=== PATIENT | female | born 1975 | race Two or more races ===

== ENCOUNTER 2025-02-15 23:40 | Inpatient (IN) | payer BC, OTHER ==
[~2025-02-15] VITALS: Ht 172.7 cm; Wt 75.0 kg
--- NOTE | 2025-02-15 23:58 | ECG ---
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
--- NOTE | 2025-02-16 00:03 | ED.PDOC ---
Altered Mental Status HPI Comments 49 year old female presents to the ED via EMS with a chief compliant of ALOC onset today (02/15/25). Per EMS, patient's witnessed patient take an unknown amount of her Dilaudid 5 mg medication. Patient is altered, poor historian but able to follow command. PMHx HTN, DM, HLD. No other associated symptoms, modifiers, recent injuries or sick contacts present at this time. 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: No Pertinent OPTICAL LABORATORY MECHANIC History Family History Family History: Reviewed,noncontributory to illness, No family hx of Cancer, No family hx of DM, No family hx of Heart mele, No family hx of HTN, No family hx ofKidney mele, No family hx of Liver mele, No family hx of Lung mele, No family hx of Stroke Social History Smoker: Non-Smoker Alcohol: Denies ETOH Use Drugs: Denies Drug Use Lives In: Home Unable to Obtain due to: Altered Mental Status Physical Exam General Appearance: Normal HEENT: Normal ENT Inspection, Pharynx Normal, TMs Normal Neck: Full Range of Motion, Non-Tender, Normal, Normal Inspection Respiratory: Chest Non-Tender, Lungs Clear, No Accessory Muscle Use, No Respiratory Distress, Normal Breath Sounds Cardiovascular: No Edema, No JVD, No Murmur, No Gallop, Normal Peripheral Pulses, Regular Rate/Rhythm Breast Exam: Deferred Gastrointestinal: No Organomegaly, Non Tender, No Pulsatile Mass, Normal Bowel Sounds, Soft Genitalia: Deferred Pelvic: Deferred Rectal: Deferred Extremities: No calf tenderness, Normal capillary refill, Normal inspection, Normal range of motion, Non-tender, No pedal edema Musculoskeletal : Apperance: Normal Neurologic: Alert, ticket taker II-XII nml as Tested, No Motor Deficits, Normal Affect, Normal Mood, No Sensory Deficits Cerebellar Function: Normal Reflexes: Normal Skin: Dry, Normal Color, Warm Lymphatic: No Adenopathy Was a procedure done? Was a procedure done?: No Differential Diagnosis (ALOC) Differential Diagnosis: Dehydration, Hypoglycemia, Sepsis, Hypoxemia, Seizure, CVA X-Ray, Labs, Meds, VS Vital Signs Date Time Temp Pulse Resp B/P (MAP) Pulse Ox O2 Delivery O2 Flow Rate FiO2 02/16/25 01:22 98.0 119 25 124/90 (101) 93 98.0 02/16/25 00:30 Room Air* 0 21 02/15/25 23:49 98.6 99 17 132/79 (96) 96 98.6 02/15/25 23:42 105 Lab Test 02/16/25 01:24 02/15/25 23:59 Range/Units Lactic Acid Level Pending White Blood Count 9.6 4.4-10.8 10^3/uL Red Blood Count 3.63 L 4.0-5.20 10^6/uL Hemoglobin 11.5 L 12.2-16.2 g/dL Hematocrit 33.8 L 36.0-46.0 % Mean Corpuscular Volume 93.0 80.0-100.0 fL Mean Corpuscular Hemoglobin 31.7 28.0-32.0 pg Mean Corpuscular Hemoglobin Concent 34.0 32.0-36.0 g/dL Red Cell Distribution Width 18.6 H 11.8-14.3 % Platelet Count 623 H 140-450 10^3/uL Mean Platelet Volume 8.1 6.9-10.8 fL Neutrophils (%) (Auto) 58.2 37.0-80.0 % Lymphocytes (%) (Auto) 26.7 10.0-50.0 % Monocytes (%) (Auto) 14.3 H 0.0-12.0 % Eosinophils (%) (Auto) 0.3 0.0-7.0 % Basophils (%) (Auto) 0.5 0.0-2.0 % Neutrophils # (Auto) 5.6 1.6-8.6 10 ^3/uL Lymphocytes # (Auto) 2.6 0.4-5.4 10 ^3/uL Monocytes # (Auto) 1.4 H 0-1.3 10 ^3/uL Eosinophils # (Auto) 0 0-0.8 10 ^3/uL Basophils # (Auto) 0 0-0.2 10 ^3/uL Nucleated Red Blood Cells 0.1 % Sodium Level 138 136-145 mmol/L Potassium Level 4.1 3.5-5.1 mmol/L Chloride Level 104 98-107 mmol/L Carbon Dioxide Level 24 20-31 mmol/L Anion Gap 10 5-15 Blood Urea Nitrogen 15 9-23 mg/dL Creatinine 0.49 L 0.550-1.02 mg/dL Glomerular Filtration Rate Calc 116 >90 mL/min BUN/Creatinine Ratio 30.6 H 10.0-20.0 Serum Glucose 121 H 74-106 mg/dL Calcium Level 9.6 8.7-10.4 mg/dL Salicylates Level < 3.0 -30 mg/dL Acetaminophen Level < 2.0 L 10.0-20.0 UG/ML Plasma/Serum Blood Alcohol < 3.0 <10 mg/dL Current Medications Medications (Trade) Dose Ordered Sig/Jana Route Start Time Stop Time Status Last Admin Naloxone HCl (Narcan) 2 mg ONCE ONCE IV 02/16/25 00:00 02/16/25 00:01 DC 02/16/25 00:42 [place] [id number] Ph: [phone] DIAGNOSTIC IMAGING Diagnostic Imaging Report : [id number] Signed PATIENT: VANITA AVENDAÑO ACCT: [id number] UNIT: [id number] : 1975 LOC: ER ROOM / BED: / AGE / SEX: 49 / F ADM STATUS: REG ER SERVICE [id number] ORDERING PHYSICIAN: BRUCE URENA MD PROCEDURE(s): HWOCT - HEAD WITHOUT CONTRAST REASON: [facility] ORDER NUMBER(s): [id number], ACCESSION NUMBER(s): [id number] COMPUTERIZED TOMOGRAPHY OF THE HEAD WITHOUT CONTRAST REASON FOR STUDY: AMS COMPARISON: None TECHNIQUE: Helical tomographic scans were obtained through the brain. 2-D coronal and sagittal reformatted images are provided. Radiation optimization: All CT scans at this facility use at least one of these dose optimization techniques: Automated exposure control mA and/or kV adjustment per patient size (includes targeted exams where dose is matched to clinical indication) or iterative reconstruction. RADIATION DOSE: CTDI: 51 mGy DLP: 927 mGy-cm FINDINGS: No suspicious intracranial hyperdensity to suggest acute blood. There is no mass effect nor midline shift. There is no hydrocephalus. The suprasellar cistern is intact. The calvarium is intact. The visualized mastoid air cells and paranasal sinuses are clear. IMPRESSION: No acute intracranial abnormality. ATED BY: KYLE MONTIEL MD DICTATED DATE/TIME: 02/16/2526 SIGNED BY: KYLE MONTIEL MD SIGNED DATE/TIME: 02/16/2526 CC: [place] [id number] Ph: [phone] DIAGNOSTIC IMAGING Diagnostic Imaging Report : [id number] Signed PATIENT: VANITA AVENDAÑO ACCT: [id number] UNIT: [id number] : 1975 LOC: ER ROOM / BED: / AGE / SEX: 49 / F ADM STATUS: REG ER SERVICE [id number] ORDERING PHYSICIAN: BRUCE URENA MD PROCEDURE(s): CXRP - CHEST PORTABLE REASON: weakness ORDER NUMBER(s): [id number], ACCESSION NUMBER(s): [id number] CHEST RADIOGRAPH REASON FOR EXAM: weakness COMPARISON: None TECHNIQUE: One view of the chest is provided FINDINGS: The cardiomediastinal silhouette is partially obscured. There is diffuse bilateral airspace disease. There is no significant pleural effusion. There is no pneumothorax. No acute osseous abnormality is identified. Surgical clips project over the right upper quadrant, likely from prior cholecystectomy. IMPRESSION: Diffuse bilateral airspace disease. This can be seen with multifocal pneumonia, ARDS, and florid pulmonary edema among other etiologies. ATED BY: KYLE MONTIEL MD DICTATED DATE/TIME: 02/16/2548 SIGNED BY: KYLE MONTIEL MD SIGNED DATE/TIME: 02/16/2548 CC: Time of 1ST Reevaluation: 00:20 Reevaluation 1ST: Unchanged Patient Education/Counseling: Diagnosis, Treatment, Prognosis Family Education/Counseling: No Family Present SEPSIS Sepsis Screen Date sepsis recognized/suspect: Feb 15, 2025 Time Sepsis recognized/suspect: 2353 Recent Procedure: No On Antibiotic Therapy: No Respiratory Rate >20: No Heart Rate >90: Yes Temp<36 C (96.8 F) or >38.3 C: No SBP <90 or MAP <65 mmHG: No New Acute Mental Status Change: No Is the patient on CPAP, BIPAP,: No Physician Orders Drug Screen (02/15/25 23:55) Urinalysis (02/15/25 23:55) Head Without Contrast (02/15/25 23:55) Chest Portable (02/15/25 23:55) Lactic Acid W/ Reflex Order (02/16/25 01:19) Blood Culture (02/16/25 01:19) Sodium Chloride 0.9% (02/16/25 01:30) Cefepime 2gm/50ml Ns (Maxipime 2gm/50ml) (02/16/25 01:30) Vancomycin 1gm/200ml Pm (02/16/25 01:30) Insert/Manage Urinary Catheter QSHIFT (02/16/25 02:13) Vital Signs Date Time Temp Pulse Resp B/P (MAP) Pulse Ox O2 Delivery O2 Flow Rate FiO2 02/16/25 01:22 98.0 119 25 124/90 (101) 93 98.0 02/16/25 00:30 Room Air* 0 21 02/15/25 23:49 98.6 99 17 132/79 (96) 96 98.6 02/15/25 23:42 105 Laboratory Tests Test 02/15/25 23:59 02/16/25 01:24 White Blood Count 9.6 10^3/uL (4.4-10.8) Lactic Acid Level Pending Medications Medications Dose Ordered Sig/Jana Route Start Time Stop Time Status Last Admin Dose Admin Naloxone HCl 2 mg ONCE ONCE IV 02/16/25 00:00 02/16/25 00:01 DC 02/16/25 00:42 Departure 1 Departure Time of Disposition: 02:15 (Patient presenting with the acute altered mental status. X-rays concerning for possible multifocal pneumonia. We will empirically cover patient with antibiotics admit patient for further workup) Impression: Primary Impression: Acute metabolic encephalopathy Additional Impressions: Multifocal pneumonia Generalized weakness Disposition: ADMITTED INPATIENT Admit to: Med Surg Condition: Serious Critical Care Note Critical Care Time?: Yes Critical care comment: Altered mental status Authorized and Performed by: Bruce Urena MD Total critical care time: Approximately 39 minutes Due to a high probability of clinically significant, life threatening deterioration, the patient required my highest level of preparedness to intervene emergently and I personally spent this critical care time directly and personally managing the patient. This critical care time included obtaining a history; examining the patient; pulse oximetry; ordering and review of studies; arranging urgent treatment with development of a management plan; evaluation of patient's response to treatment; frequent reassessment; and, discussions with other providers. This critical care time was performed to assess and manage the high probability of imminent, life-threatening deterioration that could result in multi-organ failure. It was exclusive of separately billable procedures and treating other patients and teaching time. Please see my other sections and the rest of the note for further information on patient assessment and treatment. Stability Stability form required: No I personally scribed for BRUCE URENA MD ([email or web address]) on 02/16/25 at 00:03. Electronically submitted by Sabiha Bailey ([email or web address]). I personally scribed for BRUCE URENA MD ([email or web address]) on 02/16/25 at 00:11. Electronically submitted by Sabiha Bailey ([email or web address]). I personally scribed for BRUCE URENA MD ([email or web address]) on 02/16/25 at 01:08. Electronically submitted by Sabiha Bailey ([email or web address]). BRUCE URENA MD Feb 16, 2025 00:03
[2025-02-16 00:19] LABS: Hematocrit 33.8 % (36.0-46.0); Hemoglobin 11.5 g/dL (12.2-16.2); Mean Corpuscular Hemoglobin 31.7 pg (28.0-32.0); Mean Corpuscular Volume 93.0 fL (80.0-100.0); Nucleated Red Blood Cells % 0.1 %
[2025-02-16 00:22] LABS: Chloride 104 mmol/L (98-107); Potassium 4.1 mmol/L (3.5-5.1); Sodium 138 mmol/L (136-145)
[2025-02-16 00:23] LABS: Anion Gap 10 (5-15); Carbon Dioxide 24 mmol/L (20-31)
[2025-02-16 00:24] LABS: Calcium 9.6 mg/dL (8.7-10.4)
[2025-02-16 00:28] LABS: BUN/Creatinine Ratio 30.6 (10.0-20.0); Blood Urea Nitrogen 15 mg/dL (9-23)
--- NOTE | 2025-02-16 00:29 | DVH ---
COMPUTERIZED TOMOGRAPHY OF THE HEAD WITHOUT CONTRAST REASON FOR STUDY: AMS COMPARISON: None TECHNIQUE: Helical tomographic scans were obtained through the brain. 2-D coronal and sagittal refor matted images are provided. Radiation optimization: All CT scans at this facility use at least one of these dose optimization techniques: Automated exposure control mA and/or kV adjustment per patient s ize (includes targeted exams where dose is matched to clinical indication) or iterative reconstructio n. RADIATION DOSE: CTDI: 51 mGy DLP: 927 mGy-cm FINDINGS: No suspicious intracranial hyperdensity to suggest acute blood. There is no mass effect n or midline shift. There is no hydrocephalus. The suprasellar cistern is intact. The calvarium is inta ct. The visualized mastoid air cells and paranasal sinuses are clear. IMPRESSION: No acute intracranial abnormality.
[2025-02-16 00:33] LABS: Acetaminophen < 2.0 UG/ML (10.0-20.0); Glucose 121 mg/dL (74-106); Salicylate < 3.0 mg/dL (-30)
[2025-02-16] MEDS: NALOXONE HCL 1MG/ML 2ML SYRINGE IV ONE (00:42)
[2025-02-16] MEDS: ONDANSETRON HCL 4 MG/2 ML VIAL ONE (00:52)
--- NOTE | 2025-02-16 00:52 | DVH ---
CHEST RADIOGRAPH REASON FOR EXAM: weakness COMPARISON: None TECHNIQUE: One view of the chest is provided FINDINGS: The cardiomediastinal silhouette is partially obscured. There is diffuse bilateral airspace disease. There is no significant pleural effusion. There is no pneumothorax. No acute osseous abnorm ality is identified. Surgical clips project over the right upper quadrant, likely from prior cholecys tectomy. IMPRESSION: Diffuse bilateral airspace disease. This can be seen with multifocal pneumonia, ARDS, and florid pulm onary edema among other etiologies.
[2025-02-16] MEDS: ONDANSETRON HCL 4 MG/2 ML VIAL IV ONE (01:00)
[2025-02-16] MEDS: VANCOMYCIN 1GM/200ML PM 200 ML IV ONE (01:30)
[2025-02-16] MEDS: CEFEPIME 2GM/50ML NS 50 ML IV ONE (01:30)
[2025-02-16] MEDS: SODIUM CHLORIDE 0.9% 1,900 ML IV ONE (01:30)
[2025-02-16] MEDS ORDERED: VENL37.588 PO (08:05)
[2025-02-16] MEDS ORDERED: ZOLP10TA6 PO (08:05)
[2025-02-16] MEDS ORDERED: AMLO1TAB22 PO (08:05)
[2025-02-16] MEDS ORDERED: APIX2.5T PO (08:08)
--- NOTE | 2025-02-16 08:09 | DVHHP2 ---
History of Present Illness Reason for Visit: ALOC History of Present Illness Lisa Hurtado is a 49-year-old female with past medical history of diabetes, hyperlipidemia, hypertension, gubcn-laslnh-yaal disease, breast augmentation, cholecystectomy and left hip replacement on January 31, 2025 at [facility] who presents to the ED with altered level of consciousness per . Her at the bedside Doc states that around for 4:30 p.m. yesterday she was kind of off and not herself. Patient reports that she is not on oxygen at home however upon examination patient is on oxygen. Patient reports that she is compliant with her medications. Upon examination patient is alert and oriented x4 also complains of being short of breath upon examination. She reports that she walks with a front wheel walker. Also reports that she has serum tears that was made from her own stem cells by her physician. Patient's states that she has a follow up appointment for her left hip replacement tomorrow at [facility]. Patient denies any recent sick contacts, recent travels, recent ingestion of spoiled food, abdominal pain, nausea, vomiting, diarrhea, urinary symptoms, chest pain, fever, chills, lightheadedness, weakness, or dizziness. 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 Dad with liver disease, hypertension, and CVA.) Smoke: No ALCOHOL: none Drugs: None Lives: with Family Domestic Violence: Neg Review of Systems Neurological: Other (ALOC) Allergies: Coded Allergies: NO KNOWN ALLERGIES (Unverified , 02/15/25) Exam Vital Signs Vital Signs Date Time Temp Pulse Resp B/P (MAP) Pulse Ox O2 Delivery O2 Flow Rate FiO2 02/16/25 07:30 97.8 92 15 121/84 (96) 95 97.8 02/16/25 00:30 Room Air* 0 21 General Appearance: Alert, Oriented X3, Cooperative, No acute distress HEENT: Atraumatic, PERRLA, EOMI, Mucous membr. moist/pink Respiratory: Clear to auscultation, Normal air movement Cardiovascular: Normal S1, Normal S2, No murmurs Abdominal: Normal bowel sounds, Soft Extremities: Normal pulses Skin: No significant lesion Neuro: Normal speech, Normal tone, Sensation intact Psych/Mental Status: Mental status NL, Mood NL Labs/Xrays Labs Test 02/16/25 01:24 02/15/25 23:59 Range/Units Lactic Acid Level 1.6 0.4-2.0 mmol/L White Blood Count 9.6 4.4-10.8 10^3/uL Red Blood Count 3.63 L 4.0-5.20 10^6/uL Hemoglobin 11.5 L 12.2-16.2 g/dL Hematocrit 33.8 L 36.0-46.0 % Mean Corpuscular Volume 93.0 80.0-100.0 fL Mean Corpuscular Hemoglobin 31.7 28.0-32.0 pg Mean Corpuscular Hemoglobin Concent 34.0 32.0-36.0 g/dL Red Cell Distribution Width 18.6 H 11.8-14.3 % Platelet Count 623 H 140-450 10^3/uL Mean Platelet Volume 8.1 6.9-10.8 fL Neutrophils (%) (Auto) 58.2 37.0-80.0 % Lymphocytes (%) (Auto) 26.7 10.0-50.0 % Monocytes (%) (Auto) 14.3 H 0.0-12.0 % Eosinophils (%) (Auto) 0.3 0.0-7.0 % Basophils (%) (Auto) 0.5 0.0-2.0 % Neutrophils # (Auto) 5.6 1.6-8.6 10 ^3/uL Lymphocytes # (Auto) 2.6 0.4-5.4 10 ^3/uL Monocytes # (Auto) 1.4 H 0-1.3 10 ^3/uL Eosinophils # (Auto) 0 0-0.8 10 ^3/uL Basophils # (Auto) 0 0-0.2 10 ^3/uL Nucleated Red Blood Cells 0.1 % Sodium Level 138 136-145 mmol/L Potassium Level 4.1 3.5-5.1 mmol/L Chloride Level 104 98-107 mmol/L Carbon Dioxide Level 24 20-31 mmol/L Anion Gap 10 5-15 Blood Urea Nitrogen 15 9-23 mg/dL Creatinine 0.49 L 0.550-1.02 mg/dL Glomerular Filtration Rate Calc 116 >90 mL/min BUN/Creatinine Ratio 30.6 H 10.0-20.0 Serum Glucose 121 H 74-106 mg/dL Calcium Level 9.6 8.7-10.4 mg/dL Salicylates Level < 3.0 -30 mg/dL Acetaminophen Level < 2.0 L 10.0-20.0 UG/ML Plasma/Serum Blood Alcohol < 3.0 <10 mg/dL COMPUTERIZED TOMOGRAPHY OF THE HEAD WITHOUT CONTRAST REASON FOR STUDY: AMS COMPARISON: None TECHNIQUE: Helical tomographic scans were obtained through the brain. 2-D coronal and sagittal reformatted images are provided. Radiation optimization: All CT scans at this facility use at least one of these dose optimization techniques: Automated exposure control mA and/or kV adjustment per patient size (includes targeted exams where dose is matched to clinical indication) or iterative reconstruction. RADIATION DOSE: CTDI: 51 mGy DLP: 927 mGy-cm FINDINGS: No suspicious intracranial hyperdensity to suggest acute blood. There is no mass effect nor midline shift. There is no hydrocephalus. The supr asellar cistern is intact. The calvarium is intact. The visualized mastoid air cells and paranasal sinuses are clear. IMPRESSION: No acute intracranial abnormality. CHEST RADIOGRAPH REASON FOR EXAM: weakness COMPARISON: None TECHNIQUE: One view of the chest is provided FINDINGS: The cardiomediastinal silhouette is partially obscured. There is diffuse bilateral airspace disease. There is no significant pleural effusion. There is no pneumothorax. No acute osseous abnormality is identified. Surgical clips project over the right upper quadrant, likely from prior cholecystectomy. IMPRESSION: Diffuse bilateral airspace disease. This can be seen with multifocal pneumonia, ARDS, and florid pulmonary edema among other etiologies. SEPSIS Sepsis Screen Date sepsis recognized/suspect: Feb 15, 2025 Time Sepsis recognized/suspect: 2353 Recent Procedure: No On Antibiotic Therapy: No Respiratory Rate >20: No Heart Rate >90: Yes Temp<36 C (96.8 F) or >38.3 C: No SBP <90 or MAP <65 mmHG: No New Acute Mental Status Change: No Is the patient on CPAP, BIPAP,: No Physician Orders Blood Culture (02/16/25 01:19) Insert/Manage Urinary Catheter QSHIFT (02/16/25 02:13) Hogshead Wrecker (02/16/25 ) Admit (02/16/25 08:02) Allergies (02/16/25 08:02) Code Status (02/16/25 08:02) Hydrocodone-Acet 5/325mg Tab ([place] 5/32 (02/16/25 08:15) Ondansetron Hcl (Zofran) (02/16/25 08:15) Enoxaparin Sodium (Lovenox) (02/16/25 10:00) Complete Blood Count (02/17/25 04:00) Comprehensive Metabolic Panel (02/17/25 04:00) Cardiac Diet-2gna,Lofat,Lochol (02/16/25 Breakfast) Acetaminophen Tablet (Tylenol Tablet) (02/16/25 08:15) Sequential Compression Device (02/16/25 ) Ceftriaxone Ivpb Rocephin (02/16/25 09:00) Vital Signs Date Time Temp Pulse Resp B/P (MAP) Pulse Ox O2 Delivery O2 Flow Rate FiO2 02/16/25 07:30 97.8 92 15 121/84 (96) 95 97.8 02/16/25 05:46 98.1 104 20 114/78 (90) 97 98.1 02/16/25 04:00 110 02/16/25 03:39 98.1 114 18 122/87 (99) 96 98.1 02/16/25 01:22 98.0 119 25 124/90 (101) 93 98.0 02/16/25 00:30 Room Air* 0 21 Laboratory Tests Test 02/15/25 23:59 02/16/25 01:24 White Blood Count 9.6 10^3/uL (4.4-10.8) Lactic Acid Level 1.6 mmol/L (0.4-2.0) Medications Medications Dose Ordered Sig/Jana Route Start Time Stop Time Status Last Admin Dose Admin Cefepime HCl 50 ml @ 12.5 mls/hr ONCE ONCE IV 02/16/25 01:30 02/16/25 05:29 DC 02/16/25 01:30 12.5 MLS/HR Naloxone HCl 2 mg ONCE ONCE IV 02/16/25 00:00 02/16/25 00:01 DC 02/16/25 00:42 2 MG Ondansetron HCl 4 mg ONCE ONCE IV 02/16/25 01:00 02/16/25 01:01 DC 02/16/25 01:00 4 MG Sodium Chloride 1,900 ml @ 1,900 mls/hr ONCE ONCE IV 02/16/25 01:30 02/16/25 02:29 DC 02/16/25 01:30 1,900 MLS/HR Vancomycin HCl 200 ml @ 200 mls/hr ONCE ONCE IV 02/16/25 01:30 02/16/25 02:29 DC 02/16/25 01:30 200 MLS/HR Assessment/Plan Assessment/Plan Assessment Acute encephalopathy Acute hypoxic respiratory failure on supplementary oxygen with possible pneumonia History of hypertension History of diabetes History of hyperlipidemia History of left hip replacement on 01/31/25 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 History of breast augmentation History of cholecystectomy Plan Admit to [facility] Supplementary O2 IV antibiotics-ceftriaxone Vancomycin + cefepime given in ED Duo nebs NS 2 L given ED Antiemetics Blood cultures Lactic noted Chest x-ray CT head noted UA Salicylate panel Blood alcohol panel UDS EKG Degroot catheter in place due to recent history of left hip replacement Diet Home medications reconciled DVT prophylaxis-patient on Eliquis PUD prophylaxis-not indicated no history of GERD or GI bleed Discussed plan of care with patient, patient's spouse and nurse [id number] Preventive counseling healthy eating habits, physical activity, and regular checkups Plan discussed with: Patient, Spouse My Orders Orders - KATHARINA HERNANDEZ Procedure Category Date Status Time Admit ADMIT 02/16/25 Verified 08:02 Allergies JAKE 02/16/25 Verified 08:02 Code Status CODE 02/16/25 Verified 08:02 Hydrocodone-Acet PHA 02/16/25 Verified 5/325mg Tab ([place] 08:15 Ondansetron Hcl PHA 02/16/25 Verified (Zofran) 08:15 Enoxaparin Sodium PHA 02/16/25 Verified (Lovenox) 10:00 Complete Blood Count LAB 02/17/25 Verified 04:00 Comprehensive LAB 02/17/25 Verified Metabolic Panel 04:00 Cardiac DIET 02/16/25 Verified Diet-2gna,Lofat,Lochol Breakfast Acetaminophen Tablet PHA 02/16/25 Verified (Tylenol Tablet) 08:15 Sequential JAKE 02/16/25 Verified Compression Device Ceftriaxone Ivpb PHA 02/16/25 Verified Rocephin 09:00 Date of Service: Feb 16, 2025 Billing Provider: KATHARINA HERNANDEZ Common Visit Codes: 03545-CJRALTU INP/OBS CARE (HIGH) Secondary Visit Codes: [id number] COUNSELING IND KATHARINA HERNANDEZ Feb 16, 2025 08:09
[2025-02-16] MEDS ORDERED: ACETAMINOPHEN 325 MG TAB PO PRN (08:15)
[2025-02-16] MEDS ORDERED: HYDROcodone-ACET 5/325MG TAB PO PRN (08:15)
[2025-02-16] MEDS ORDERED: ONDANSETRON HCL 4 MG/2 ML VIAL IV PRN (08:15)
[2025-02-16 08:59] LABS: Urine Protein, UAD Negative (Negative)
[2025-02-16 09:11] LABS: Opiate Scree,Urine Neg (NEGATIVE)
[2025-02-16 09:12] LABS: Amphetamine Screen, Urine Neg (NEGATIVE); Barbiturate Scree,Urine Neg (NEGATIVE); Benzodiazephine Screen, Urine Neg (NEGATIVE); Cannabinoid Screen, Urine Neg (NEGATIVE); Cocaine Screen, Urine Neg (NEGATIVE); Phencyclidine Screen, Urine Neg (NEGATIVE)
[2025-02-16 09:26] VITALS: RESP 18
[2025-02-16] MEDS: cefTRIAXone 1GM/50ML D5W 50 ML IV SCH (09:31)
[2025-02-16] MEDS ORDERED: ENOXAPARIN SOD 40 MG/0.4 ML SYRINGE SC SCH (10:00)
[2025-02-16 10:24] VITALS: PULSE 88; RESP 16; O2SAT 97
[2025-02-16] MEDS: VENLAFAXINE HCL 37.5mg XR cap PO SCH (11:05)
[2025-02-16] MEDS: APIXABAN 2.5 MG TAB PO SCH (11:05)
[2025-02-16 12:30] VITALS: BP 119/87; PULSE 80; RESP 17; TEMP 98.2; O2SAT 99
--- NOTE | 2025-02-16 13:54 | DVHPN2 ---
Subjective Patient reporting generalized weakness. Patient's reports patient having hallucinations. Reviewed: Care Plan, H&P, Labs, Medications Changes from previous H/P or p: No Changes General: Per HPI Objective Vitals Vital Signs Date Time Temp Pulse Resp B/P (MAP) Pulse Ox O2 Delivery O2 Flow Rate FiO2 02/16/25 12:30 98.2 80 17 119/87 (98) 99 98.2 02/16/25 10:24 Nasal Cannula* 3 32 General Appearance: Alert, Oriented X3, Cooperative, No acute distress HEENT: Atraumatic, PERRLA Cardiovascular: Normal S1, Normal S2 Abdomen: Normal bowel sounds Musculoskeletal: Normal sensory function, Normal motor function Neuro: Normal speech Skin: Dry, Intact Psych/Mental Status: Mental status NL, Mood NL Medications Current Medications Medications Dose Ordered Sig/Jana Route Start Time Stop Time Status Last Admin Dose Admin Acetaminophen/ Hydrocodone Bitart 1 tab Q4HP PRN PO 02/16/25 08:15 Ondansetron HCl 4 mg Q4HP PRN IV 02/16/25 08:15 Enoxaparin Sodium 40 mg DAILY SC 02/16/25 10:00 UNV Acetaminophen 650 mg Q6HP PRN PO 02/16/25 08:15 Ceftriaxone Sodium 50 ml @ 100 mls/hr DAILY@09 IV 02/16/25 09:00 02/16/25 09:31 100 MLS/HR Venlafaxine HCl 37.5 mg DAILY PO 02/16/25 10:00 02/16/25 11:05 37.5 MG Apixaban 2.5 mg DAILY PO 02/16/25 10:00 02/16/25 11:05 2.5 MG Amlodipine Besylate 5 mg DAILY PO 02/16/25 10:00 Albuterol 2.5 mg Q4HWA NEB 02/16/25 14:00 UNV Ipratropium [place] 0.5 mg Q4HWA NEB 02/16/25 14:00 UNV Laboratory Results Laboratory Tests 02/15/25 23:59 Chemistry Test 02/15/25 23:59 Calcium Level 9.6 mg/dL (8.7-10.4) Urinalysis Test 02/15/25 08:30 Urine Color Light-yellow (Yellow) Urine Clarity Clear (Clear) Urine pH 6.0 (5.0-9.0) Urine Specific [place] 1.014 (1.001-1.035) Urine Protein Negative (Negative) Urine Ketones Negative (Negative) Urine Blood Negative /uL (Negative) Urine Nitrite Negative (Negative) Urine Bilirubin Negative (Negative) Urine Urobilinogen Normal mg/dL (Negative) Urine Leukocyte Esterase Negative /uL (Negative) Urine RBC 1 /hpf (0 - 4) Urine Microscopic WBC 1 /HPF (0-5) Urine Squamous Epithelial Cells Few /hpf (<5) Urine Bacteria None seen /hpf (None Seen) Urine Glucose Normal mg/dL (Normal) Labs and/or images reviewed: Labs reviewed by me, Image(s) reviewed by me Assessment/Plan Assessment/Plan Impression: -acute hypoxic respiratory failure -? 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 Cirrhosis -? Hepatic encephalopathy -rule out sepsis -status post left hip replacement Plan: -O2 supplementation to keep saturation greater than 90% -CT scan of the chest -check LFTs, ammonia level -continue empiric antibiotic therapy with cefepime -q.6 Accu-Cheks. Continue coverage with insulin pump -check ESR, CRP -repeat labs in a.m. -pain management Total time spent with patient discussing and formulating plan of care: 35 minutes. This medical document was created using an electronic medical record system with [employer] dictation system. Although this document has been carefully reviewed, there may still be some phonetic and typographical errors. These areas are purely typographical due to imperfections of the software programs, and do not reflect any compromise in the patient's medical care. Plan discussed with: Patient, Other (RN) My Orders Orders - ASHLEE SOTOMAYOR NP Procedure Category Date Status Time Chest Without Contrast CT 02/16/25 Taken 12:42 C-Reactive Protein LAB 02/16/25 Logged 12:42 Erythrocyte LAB 02/16/25 Logged Sedimentation Rate 12:42 Comprehensive LAB 02/16/25 Logged Metabolic Panel 13:18 Ammonia LAB 02/16/25 Logged 13:18 Date of Service: Feb 16, 2025 Billing Provider: ASHLEE SOTOMAYOR NP Common Visit Codes: [id number] INP/OBS CARE(HIGH) ASHLEE SOTOMAYOR NP Feb 16, 2025 13:54
[2025-02-16] MEDS ORDERED: CYCL0.058 EACHEYE (13:55)
[2025-02-16] MEDS ORDERED: HYDR2TAB2 PO (13:55)
--- NOTE | 2025-02-16 14:18 | DVH ---
Indication: multifocal pna Technique: CT axial images of the chest are obtained without contrast. Coronal and sagittal reformats were obtained. Radiation Dose Information: CTDI volume is 0.07 mGy. Dose-length product is 293.86 mGy*cm Comparison: 02/16/2025 FINDINGS: Trachea patent. No pneumothorax. Diffuse bilateral pulmonary reticulation, ground-glass disease. Th ere is associated pulmonary tree-in-bud nodularity. Mild bronchiectatic changes bilaterally. No pleural effusion. Heart normal in size. No supraclavicular or axillary lymphadenopathy. Hepatic steatosis, hepatomegaly. Heterogeneous lesion in the left hepatic lobe measuring 2.6 cm [place] cystectomy. IMPRESSION: Limited evaluation without contrast. Diffuse bilateral pulmonary ground-glass disease, tree-in-bud nodularity which can be secondary to in fection/atypical infection. Follow-up to resolution. Hepatic steatosis, hepatomegaly. Heterogeneous lesion in the left hepatic lobe measuring 2.6 cm. Recommend multiphasic MRI abdomen to evaluate. Other findings as described
[2025-02-16] MEDS: ALBUTEROL SULF 2.5 MG/0.5ML(0.5%) NEB SOLN NEB SCH (15:24)
[2025-02-16] MEDS: IPRATROPIUM BROM 0.5 MG/2.5ML INH SOL NEB SCH (15:24)
[2025-02-16 15:27] LABS: Anion Gap 10 (5-15); BUN/Creatinine Ratio 22.6 (10.0-20.0); Bilirubin, Total 0.6 mg/dL (0.2-1.0); Blood Urea Nitrogen 14 mg/dL (9-23); Calcium 10.2 mg/dL (8.7-10.4); Carbon Dioxide 24 mmol/L (20-31); Chloride 104 mmol/L (98-107); Potassium 4.1 mmol/L (3.5-5.1); Sodium 138 mmol/L (136-145); Total Protein 7.2 g/dL (5.7-8.2)
[2025-02-16 15:30] VITALS: BP 119/87; PULSE 91; RESP 16; TEMP 98.2; O2SAT 94
[2025-02-16 15:33] LABS: Alanine Aminotransferase 105 U/L (7-40); Albumin 4.9 g/dL (3.2-4.8); Alkaline Phosphatase 304 U/L (46-116); Glucose 163 mg/dL (74-106)
[2025-02-16 16:17] VITALS: BP 121/85; PULSE 91; RESP 16; TEMP 98.1; O2SAT 95
[2025-02-16] MEDS: ACCU-CHEK COMFORT CURVE STRIP VI SCH (17:50)
[2025-02-16] MEDS ORDERED: CYCLOSPORINE 0.05% EACHEYE SCH (22:00)
[2025-02-16] MEDS ORDERED: CEFEPIME 1GM/ 50ML 50 ML IV SCH (22:00)
--- NOTE | 2025-02-17 08:58 | DVHDS2 ---
Discharge Summary Date of Admission Feb 16, 2025 at 08:04 Date of Discharge: Feb 16, 2025 Admitting Diagnosis Acute hypoxic respiratory failure Labs/Diagnostic Data: Laboratory Results Test 02/16/25 16:31 02/16/25 14:30 02/16/25 01:24 02/15/25 23:59 POC Glucose 143 mg/dl (70-106) Erythrocyte Sedimentation Rate 83 mm/hr (0-20) Sodium Level 138 mmol/L (136-145) Potassium Level 4.1 mmol/L (3.5-5.1) Chloride Level 104 mmol/L (98-107) Carbon Dioxide Level 24 mmol/L (20-31) Anion Gap 10 (5-15) Blood Urea Nitrogen 14 mg/dL (9-23) Creatinine 0.62 mg/dL (0.550-1.02) Glomerular Filtration Rate Calc 110 mL/min (>90) BUN/Creatinine Ratio 22.6 (10.0-20.0) Serum Glucose 163 mg/dL (74-106) Calcium Level 10.2 mg/dL (8.7-10.4) Total Bilirubin 0.6 mg/dL (0.2-1.0) Aspartate Amino Transferase (AST) 186 U/L (13-40) Alanine Aminotransferase (ALT) 105 U/L (7-40) Alkaline Phosphatase 304 U/L (46-116) Ammonia 12 umol/L (11-32) C-Reactive Protein High Sensitivity 1.67 mg/dL (<1.0) Total Protein 7.2 g/dL (5.7-8.2) Albumin 4.9 g/dL (3.2-4.8) Lactic Acid Level 1.6 mmol/L (0.4-2.0) White Blood Count 9.6 10^3/uL (4.4-10.8) Red Blood Count 3.63 10^6/uL (4.0-5.20) Hemoglobin 11.5 g/dL (12.2-16.2) Hematocrit 33.8 % (36.0-46.0) Mean Corpuscular Volume 93.0 fL (80.0-100.0) Mean Corpuscular Hemoglobin 31.7 pg (28.0-32.0) Mean Corpuscular Hemoglobin Concent 34.0 g/dL (32.0-36.0) Red Cell Distribution Width 18.6 % (11.8-14.3) Platelet Count 623 10^3/uL (140-450) Mean Platelet Volume 8.1 fL (6.9-10.8) Neutrophils (%) (Auto) 58.2 % (37.0-80.0) Lymphocytes (%) (Auto) 26.7 % (10.0-50.0) Monocytes (%) (Auto) 14.3 % (0.0-12.0) Eosinophils (%) (Auto) 0.3 % (0.0-7.0) Basophils (%) (Auto) 0.5 % (0.0-2.0) Neutrophils # (Auto) 5.6 10 ^3/uL (1.6-8.6) Lymphocytes # (Auto) 2.6 10 ^3/uL (0.4-5.4) Monocytes # (Auto) 1.4 10 ^3/uL (0-1.3) Eosinophils # (Auto) 0 10 ^3/uL (0-0.8) Basophils # (Auto) 0 10 ^3/uL (0-0.2) Nucleated Red Blood Cells 0.1 % Salicylates Level < 3.0 mg/dL (-30) Acetaminophen Level < 2.0 UG/ML (10.0-20.0) Plasma/Serum Blood Alcohol < 3.0 mg/dL (<10) Test 02/15/25 08:30 Urine Color Light-yellow (Yellow) Urine Clarity Clear (Clear) Urine pH 6.0 (5.0-9.0) Urine Specific [place] 1.014 (1.001-1.035) Urine Protein Negative (Negative) Urine Ketones Negative (Negative) Urine Blood Negative /uL (Negative) Urine Nitrite Negative (Negative) Urine Bilirubin Negative (Negative) Urine Urobilinogen Normal mg/dL (Negative) Urine Leukocyte Esterase Negative /uL (Negative) Urine RBC 1 /hpf (0 - 4) Urine Microscopic WBC 1 /HPF (0-5) Urine Squamous Epithelial Cells Few /hpf (<5) Urine Bacteria None seen /hpf (None Seen) Urine Glucose Normal mg/dL (Normal) Urine Opiates Screen Neg (NEGATIVE) Urine Fentanyl Screen Neg (NEGATIVE) Urine Barbiturates Screen Neg (NEGATIVE) Urine Phencyclidine Screen Neg (NEGATIVE) Urine Amphetamines Screen Neg (NEGATIVE) Urine Benzodiazepines Screen Neg (NEGATIVE) Urine Cocaine Screen Neg (NEGATIVE) Urine Cannabinoids Screen Neg (NEGATIVE) Other Laboratory Tests 02/16/25 14:30 02/15/25 23:59 Brief Hx & Hospital Course: History of Present Illness Lisa Hurtado is a 49-year-old female with past medical history of diabetes, hyperlipidemia, hypertension, [id number] disease, breast augmentation, cholecystectomy and left hip replacement on January 31, 2025 at [facility] who presents to the ED with altered level of consciousness per . Her at the bedside Doc states that around for 4:30 p.m. yesterday she was kind of off and not herself. Patient reports that she is not on oxygen at home however upon examination patient is on oxygen. Patient reports that she is compliant with her medications. Upon examination patient is alert and oriented x4 also complains of being short of breath upon examination. She reports that she walks with a front wheel walker. Also reports that she has serum tears that was made from her own stem cells by her physician. Patient's states that she has a follow up appointment for her left hip replacement tomorrow at [facility]. Course of hospitalization: If there has been further discussion with the patient, it was found that she was also having hallucinations, currently on pain medication at home, as well as having history of liver disease. Hypoxia is a new condition. Given results of chest x-ray given questionable pulmonary vascular congestion, CT scan of the chest was performed. Results were reviewed by myself, including questionable interstitial lung disease, honeycombing which was found to be diffuse. Awaiting further lab work including ESR, CRP, LFTs, ammonia level. While waiting for lab work as well as CT scan to be reviewed with the patient, the patient decided to leave against medical advice. Condition at Discharge: Undetermined Final Diagnosis/Problems List Acute hypoxic respiratory failure Discharge Disposition: AMA Discharge Instruct/Medications Scheduled Apixaban Base (Eliquis), 1 TAB PO DAILY, (Reported) Cyclosporine (Ophth) (Cyclosporine), 1 DROP EACHEYE BID, (Reported) Venlafaxine Hcl (Venlafaxine Hcl Er), 1 CAP PO DAILY, (Reported) Scheduled PRN Amlodipine Besylate (Amlodipine Besylate), 1 TAB PO DAILYPRN PRN, (Reported) Hydromorphone Hcl (Hydromorphone Hcl), 1-2 TAB PO Q4HPRN PRN, (Reported) Miscellaneous Medications Zolpidem Tartrate (Zolpidem Tartrate), 1 TAB PO, (Reported) 36 Discharge Statement: "Patient was advised to return to the ER or call 911 if any headaches, dizziness, shortness of breath, chest pain, abdominal pain, bleeding, fevers, or worsening of medical condition. Patient was counseled about treatment plan, medications, possible side effects, patientverbalized understanding. All questions were answered to the best of my ability. This discharge took greater then 30 minutes in planning, reviewing documentation, counseling the patient, and discussing with other team members." ASSESSMENT ASSESSMENT Assessment Date of Service: Feb 17, 2025 Billing Provider: ASHLEE SOTOMAYOR NP Common Visit Codes: 90788-[id number] DISCH DAY >30min ASHLEE SOTOMAYOR NP Feb 17, 2025 08:58
== END 2025-02-16 16:45 | disposition left against medical advice (07) | DRG 70 ==
LOC: ER 23:40 → EDBD 23:40 → OVERFLOW 02-16 08:04 → TELE-EAST 02-16 10:17
PROVIDERS: ADMIT Nurse Practitioner Acute Care; ATTEND Nurse Practitioner Acute Care
DX: G93.41 Metabolic encephalopathy (principal); J18.9 Pneumonia, unspecified organism; J96.01 Acute respiratory failure with hypoxia; E11.9 Type 2 diabetes mellitus without complications; K74.60 Unspecified cirrhosis of liver; I10 Essential (primary) hypertension; Z96.642 Presence of left artificial hip joint; E78.5 Hyperlipidemia, unspecified; Z53.29 Procedure and treatment not carried out because of patient's decision for other reasons; Z90.49 Acquired absence of other specified parts of digestive tract; Z85.72 Personal history of non-Hodgkin lymphomas; Z82.49 Family history of ischemic heart disease and other diseases of the circulatory system; Z79.4 Long term (current) use of insulin; Z82.3 Family history of stroke; Z41.1 Encounter for cosmetic surgery
CPT/HCPCS: 36415; 70450; 71045; 71250; 80048; 80053; 80307; 80320; 80329; 81001; 82140; 82962; 83516; 83605; 85025; 85652; 86141; 86225; 86235; 87040; 93005; 96374; 96375; 99291; G0378; J0692; J2405